=== PATIENT | female | born 1965 | race African-American/Black ===

== ENCOUNTER → 2016-06-20 | Outpatient (CLI) | payer OTHER ==
--- NOTE | 2016-06-20 09:26 | MA ---
Screening Digital Mammogram with Digital Breast Tomosynthesis Clinical Indications: Routine screening. No history breast cancer at age 58. Technique: Standard cephalocaudal projections are obtained. Digital breast tomosynthesis was perform ed in the MLO projection with reconstruction at 1.0 mm slice thickness and composite MLO views recons tructed. This examination is processed by the CAD computer aided detection system. Comparison: June 06, 2015; May 20, 2014; and studies dating back to January 22, 2008. Breast density: D; The breasts are extremely dense, which lowers the sensitivity of mammography. Findings: CAD was reviewed. There are no new masses, new clusters of microcalcifications, or significant axillary lymphadenopathy . Impression: Negative mammogram. BI-RADS 1. Recommendation: Routine screening mammogram is recommended in one year. Dense mammographic pattern limits the sensitivity of mammography in this patient. If there is a clini bandar palpable abnormality, recommend additional imaging with ultrasound if clinically indicated. [facility] will send a result letter to the patient. Negative mammography should not preclude additional workup of a clinically suspicious finding. The patient's information is entered into a reminder system with a target due date for her next mammo gram.
== END ==
LOC: FIMAGING 08:40
DX: Z12.31 Encounter for screening mammogram for malignant neoplasm of breast (principal)
CPT/HCPCS: G0202

== ENCOUNTER 2017-04-11 11:41 | Emergency (ER) | payer OTHER ==
[2017-04-11 11:55] VITALS: TEMP 98.4
--- NOTE | 2017-04-11 12:06 | CPEKG ---
Heart Rate: 73 RR Interval: 822 P-R Interval: 176 QRSD Interval: 90 QT Interval: 364 QTC Interval: 401 P [place]: 47 QRS [place]: 3 T Wave [place]: 132 EKG Severity - ABNORMAL ECG - EKG Impression: SINUS RHYTHM EKG Impression: VENTRICULAR PREMATURE COMPLEX EKG Impression: PROBABLE LVH WITH SECONDARY REPOL ABNRM Electronically Signed By: Shefali Wilkes 11-Apr-2017 21:13:36
--- NOTE | 2017-04-11 12:56 | EDPHY ---
H & P Time Seen by Provider: 04/11/17 12:54 HPI/ROS: CHIEF COMPLAINT: Throat and chest tightness HISTORY OF PRESENT ILLNESS: 51-year-old female with a history of hypertension presents with throat and chest tightness. She ate am energy bar at approximately 10:30 a.m. this morning. Soon afterwards, she developed a tightness in her throat and her upper chest. The discomfort was intermittent and cramping in nature. Feels like a lump in her throat, gradually subsiding. She took ibuprofen after the onset of symptoms. No exertional features. No associated symptoms. She recently completed a course of clindamycin for dental surgery and has been taking Advil 2-3 times daily. History of prior similar symptoms, though never lasting this long. The symptoms have been related to food intake, though never been related to exertion. REVIEW OF SYSTEMS: Constitutional: No fever, no chills Eyes: No visual changes ENT: No sore throat Respiratory: No cough, no shortness of breath Gastrointestinal: No nausea, no vomiting, no abdominal pain Genitourinary: no dysuria Musculoskeletal: No leg pain or swelling Skin: No rash Neurological: No headache, no numbness, no weakness Psychiatric: No depression Past Medical/Surgical History: Hypertension FH: CAD Social History: No recent alcohol Smoking Status: Never smoked Physical Exam: General Appearance: Alert, pleasant Eyes: Pupils equal and round, no conjunctival pallor or injection ENT, Mouth: Mucous membranes moist Neck: Normal inspection Respiratory: normal inspection, no chest wall tenderness, Lungs are clear to auscultation Cardiovascular: Regular rate and rhythm, no murmur Gastrointestinal: Abdomen is soft and nontender Neurological: A&O, nonfocal, normal gait Skin: Warm and dry, no rash Extremities: Nontender, no pedal edema Psychiatric: Mood and affect normal Constitutional: Initial Vital Signs Temperature (C) 36.9 C 04/11/17 11:53 Heart Rate 84 04/11/17 11:53 Respiratory Rate 18 04/11/17 11:53 Blood Pressure 120/86 H 04/11/17 11:53 O2 Sat (%) 100 04/11/17 11:53 O2 Delivery Mode Room Air Allergies/Adverse Reactions: prochlorperazine [From Compazine] Allergy (Verified 04/11/17 11:53) Sulfa (Sulfonamide Antibiotics) Allergy (Verified 04/11/17 11:53) Home Medications: Medication Instructions Recorded Chlorthalidone 04/11/17 Lisinopril 04/11/17 Medical Decision Making - Diagnostics EKG Interpretation: EKG interpreted by me reveals normal sinus rhythm, rate 73, nonspecific T-wave changes, PVC. ED Course/Re-evaluation: This patient presents with atypical throat and chest discomfort, most likely related to esophageal spasm after eating an energy bar. EKG reveals no evidence of ischemia or dysrhythmia. Doubt ACS, other cardiopulmonary etiology , though has risk factors. GI cocktail given with relief in symptoms. Dietary instructions given. Encouraged to f/u PCP for consideration of outpt TMT testing. Differential Diagnosis: Differential diagnosis includes though it is not limited to pneumonia, pneumothorax, pulmonary embolism, aortic dissection, pericarditis, acute coronary syndrome. - Data Points Medications Given: Discontinued Medications Al Hydroxide/Mg Hydroxide (Maalox Susp) 30 ml PO ONCE ONE Stop: 04/11/17 13:08 Last Admin: 04/11/17 13:45 Dose: 30 ml Hyoscyamine Sulfate (Levsin, Hyomax-Sl) 0.25 mg PO ONCE ONE Stop: 04/11/17 13:08 Last Admin: 04/11/17 13:45 Dose: 0.25 mg Lidocaine (Lidocaine 2% Viscous) 15 ml PO ONCE ONE Stop: 04/11/17 13:08 Last Admin: 04/11/17 13:45 Dose: 15 ml Departure - Departure Disposition: Home, Routine, Self-Care Clinical Impression: Chest pain Qualifiers: Chest pain type: other chest pain Qualified Code(s): R07.89 - Other chest pain ; R07.8 - Other chest pain GERD (gastroesophageal reflux disease) Qualifiers: Esophagitis presence: without esophagitis Qualified Code(s): K21.9 - Gastro- esophageal reflux disease without esophagitis Condition: Good Instructions: Esophageal Spasm (ED) Additional Instructions: Take Mylanta before meals and at bedtime. Avoid Advil, spicy and fatty foods. Return for worsening symptoms or any concern. Follow-up primary care physician for further evaluation. Referrals: Dimitri Alan MD [Primary Care Provider] - As per Instructions
[2017-04-11] MEDS ORDERED: LIDOCAINE 2% VISCOUS 15 ML UDCUP PO ONE (13:07)
[2017-04-11] MEDS ORDERED: MAG HYDROX/AL HYDROX/SIMETH 30 ML UDCUP PO ONE (13:07)
[2017-04-11] MEDS ORDERED: HYOSCYAMINE SULFATE 0.125 MG TAB PO ONE (13:07)
[2017-04-11 14:26] VITALS: BP 130/91; PULSE 72; RESP 16; O2SAT 99
== END 2017-04-11 14:25 | disposition home or self-care (01) ==
DX: K21.9 Gastro-esophageal reflux disease without esophagitis (principal); I10 Essential (primary) hypertension

== ENCOUNTER → 2017-06-26 | Outpatient (CLI) | payer OTHER | LOC: FIMAGING 08:46 | PROVIDERS: ATTEND Obstetrics & Gynecology | DX: Z12.31 Encounter for screening mammogram for malignant neoplasm of breast (principal); Z80.3 Family history of malignant neoplasm of breast ==

== ENCOUNTER → 2018-07-14 | Outpatient (CLI) | payer OTHER | LOC: FIMAGING 08:13 | PROVIDERS: ATTEND Obstetrics & Gynecology | DX: Z12.31 Encounter for screening mammogram for malignant neoplasm of breast (principal); Z80.3 Family history of malignant neoplasm of breast ==